=== PATIENT | male | born 1965 | race Caucasian/White ===

== ENCOUNTER 2021-03-01 12:20 | Day surgery (SDC) | payer BC ==
[2021-02-28 08:54] VITALS: BMI 25.8
[2021-03-01] MEDS ORDERED: Midazolam HCl 2 mg/2 ml Vial ONE (14:07)
== END 2021-03-01 15:55 | disposition home or self-care (01) ==
LOC: SDC 12:20
PROVIDERS: ATTEND Internal Medicine Gastroenterology
PROC: 0DBN8ZX Excision of Sigmoid Colon, Via Natural or Artificial Opening Endoscopic, Diagnostic (ICD-10-PCS; principal; 2021-03-01)
PROC: 0W3P8ZZ Control Bleeding in Gastrointestinal Tract, Via Natural or Artificial Opening Endoscopic (ICD-10-PCS; principal; 2021-03-01)
DX: Z12.11 Encounter for screening for malignant neoplasm of colon (principal); D12.5 Benign neoplasm of sigmoid colon; K64.8 Other hemorrhoids; Z79.899 Other long term (current) drug therapy; Z80.0 Family history of malignant neoplasm of digestive organs
CPT/HCPCS: 88305; J2250

== ENCOUNTER 2022-09-30 08:10 | Outpatient (CLI) | payer OTHER ==
[2022-09-30] MEDS ORDERED: Iopamidol 370 76% 100 ML VIAL ONE (12:55)
== END 2022-09-30 08:11 | disposition home or self-care (01) ==
LOC: CT 08:10
PROVIDERS: ATTEND Urology
DX: R31.29 Other microscopic hematuria (principal); N20.0 Calculus of kidney
CPT/HCPCS: 74178; 82565; Q9967